=== PATIENT | male | born 1960 | race Caucasian/White ===

== ENCOUNTER 2019-04-27 06:54 | Emergency (ER) | payer BC ==
[2019-04-27 07:20] VITALS: BP 132/65; PULSE 84; TEMP 98.3; BMI 32.1
[2019-04-27] MEDS ORDERED: IBUPROFEN 400 MG TABLET (FP) PO ONE ×2 (07:59→08:01)
[2019-04-27] MEDS ORDERED: ACETAMINOPHEN 325 MG TABLET (FP) PO ONE (07:59)
[2019-04-27] MEDS ORDERED: CLINDAMYCIN HCL 150 MG CAPSULE (FP) PO ONE (07:59)
[2019-04-27] MEDS ORDERED: CLINDAMYCIN HCL 150 MG CAPSULE (FP) ONE (08:00)
[2019-04-27] MEDS ORDERED: ACETAMINOPHEN 325 MG TABLET (FP) ONE (08:00)
--- NOTE | 2019-04-27 08:04 | PDOC ---
History of Present Illness - General Chief Complaint: Pain Stated Complaint: ORAL ABSCESS, Toothache Time Seen by Provider: 04/27/19 07:21 History Source: Patient Exam Limitations: No Limitations Past History - Travel Traveled outside of the country in the last 30 days: No Close contact w/someone who was outside of country & ill: No - Past Medical History Allergies/Adverse Reactions: Allergies Allergy/AdvReac Type Severity Reaction Status Date / Time No Known Allergies Allergy Verified 04/27/19 07:16 Home Medications: Ambulatory Orders Glipizide/Metformin HCl [Glipizide-Metformin 5-500 mg] 1 tab PO TID 06/21/13 Metoprolol Succinate [Toprol XL -] 100 mg PO DAILY 06/21/13 Ramipril [Altace] 10 mg PO DAILY 06/21/13 Clindamycin [Cleocin -] 300 mg PO TID #21 capsule 04/27/19 Cardiac Disorders: Yes (coarctation of aorta at 8y/o) COPD: No Diabetes: Yes HTN: Yes - Surgical History Cardiac Surgery: Yes (open heart, valve replacement) - Immunization History Immunization Up to Date: Yes - Psycho Social/Smoking Cessation Hx Smoking History: Never smoked Have you smoked in the past 12 months: Yes If you are a former smoker, when did you quit?: 01/2013 Information on smoking cessation initiated: No Hx Alcohol Use: No Drug/Substance Use Hx: No Substance Use Type: None Hx Substance Use Treatment: No Review of Systems - Review of Systems Able to Perform ROS?: Yes Comments:: 04/27/19 08:06 CONSTITUTIONAL: Absent: fever, chills, diaphoresis, generalized weakness, malaise, loss of appetite HEENT: Present: dental pain Absent: rhinorrhea, nasal congestion, throat pain, throat swelling, difficulty swallowing, mouth swelling, ear pain, eye pain, visual Changes MUSCULOSKELETAL: Absent: myalgia, arthralgia, joint swelling SKIN: Absent: rash, itching, pallor NEUROLOGIC: Absent: headache, focal weakness or paresthesias, dizziness, unsteady gait, seizure, mental status changes, bladder or bowel incontinence PSYCHIATRIC: Absent: anxiety, depression, suicidal or homicidal ideation, hallucinations. Is the patient limited Czech proficient: No *Physical Exam - Vital Signs Last Vital Signs Temp Pulse Resp BP Pulse Ox 98.3 F 84 19 132/65 99 04/27/19 07:14 04/27/19 07:14 04/27/19 07:14 04/27/19 07:14 04/27/19 07:14 - Physical Exam Comments: 04/27/19 09:41 GENERAL: The patient is awake, alert, and fully oriented, in no acute distress. HEAD: Normal with no signs of trauma. EYES: Pupils equal, round and reactive to light, extraocular movements intact, sclera anicteric, conjunctiva clear. MOUTH: Abscess present on the R lower gum. No teeth present. EXTREMITIES: Normal range of motion, no edema. NEUROLOGICAL: Normal speech, normal gait. PSYCH: Normal mood, normal affect. SKIN: Warm, Dry, normal turgor, no rashes or lesions noted. Medical Decision Making - Medical Decision Making 04/27/19 09:46 The patient is a 59-year-old male with past medical history of hypertension, type 2 diabetes, who presents to the ER today for dental pain. He states that he feels a bump on his lower gum that is been there for approximately 3 days. He states that it hurts and has not seen any drainage. Denies fevers, chills, difficulty swallowing, vomiting. Patient states he usually wears dentures and that they fit well. A/P: Dental abscess On exam patient with a 2 cm semi-fluctuant area to the right lower gum. Minimal facial swelling noted to the right lower cheek. Unable to drain today given its not completely fluctuant We will start patient on clindamycin and refer to dentistry. Pain meds given I discussed the physical exam findings, ancillary test results and final diagnoses with the patient. I answered all of the patient's questions. The patient was satisfied with the care received and felt comfortable with the discharge plan and treatment plan. The Patient agrees to follow up with the primary care physician/specialist within 24-72 hours. Return precautions were given. Discharge - Discharge Information Problems reviewed: Yes Clinical Impression/Diagnosis: Dental abscess Condition: Stable Disposition: HOME - Admission No - Additional Discharge Information Prescriptions: Clindamycin [Cleocin -] 300 mg PO TID #21 capsule - Follow up/Referral Referrals: Lee Kruger MD [Primary Care Provider] - - Patient Discharge Instructions Patient Printed Discharge Instructions: Tooth Abscess Additional Instructions: You were evaluated for your dental pain today You have an abscess. Take the Clindamycin three times a day. You were given your first dose in the ER. Take with food. Follow up with your dentist today to have it drained within 24-48 hours Return to the ER for worsening pain, fever, worsening facial swelling or if you have any changes in your symptoms. - Post Discharge Activity Work/Back to School Note: Back to Work
== END 2019-04-27 08:08 | disposition home or self-care (01) ==
LOC: JER 06:54
DX: K12.2 Cellulitis and abscess of mouth (principal); Z87.891 Personal history of nicotine dependence; I10 Essential (primary) hypertension; E11.9 Type 2 diabetes mellitus without complications; I51.9 Heart disease, unspecified; Z79.84 Long term (current) use of oral hypoglycemic drugs
CPT/HCPCS: 99281-25